=== PATIENT | female | born 1965 | race Caucasian/White ===

== ENCOUNTER 2017-06-18 09:38 | Emergency (ER) | payer SELFPAY ==
[~2017-06-18] VITALS: Ht 165.1 cm; Wt 86.8 kg
[2017-06-18 09:48] VITALS: BP 158/82; PULSE 71; RESP 18; TEMP 98.5; O2SAT 98
[2017-06-18 09:53] VITALS: BP 158/82; PULSE 71; RESP 16; TEMP 98.5; O2SAT 98
[2017-06-18] MEDS ORDERED: ONDANSETRON HCL 4 MG/2 ML VIAL IVP ONE (10:15)
[2017-06-18] MEDS ORDERED: MORPHINE SULFATE 4 MG/ML INJ IV PUSH ONE (10:15)
--- NOTE | 2017-06-18 10:16 | PD ---
HPI Chief Complaint: Musculoskeletal Complaint Time Seen by Provider: 10:01 Travel History International Travel<30 days: No Contact w/Intl Traveler<30days: No Traveled to known affect area: No History of Present Illness HPI This patient complains of a pain. It's located in her left upper back. Started during the night. Pain is severe. No alleviating factors. Duration 8 hours. There is no injury. She denies neurologic complaints such as sensory loss muscle weakness or paresthesia. Pain is located just to the left of midline in the upper back but deep. Not reproducible with any movement. PFSH Past Medical History GERD: Yes Influenza Vaccination: No ?: Not Past Surgical History Surgical History: No Previous Surgery Social History Alcohol Use: No Tobacco Use: No Substance Use: No Allergies-Medications (Allergen,Severity, Reaction): Coded Allergies: No Known Allergies (Unverified , 06/18/17) Review of Systems General / Constitutional: No: Fever Eyes: No: Visual changes HENT: No: Headaches Cardiovascular: No: Chest Pain or Discomfort Respiratory: No: Shortness of Breath Gastrointestinal: No: Abdominal Pain Genitourinary: No: Dysuria Musculoskeletal: Positive: Pain Skin: No Rash Neurologic: No: Weakness Psychiatric: No: Depression Endocrine: No: Polydipsia Hematologic/Lymphatic: No: Easy Bruising Physical Exam Narrative GENERAL: Well-nourished, well-developed patient with left upper back pain. SKIN: Focused skin assessment reveals no rash and nodules. Skin is Warm and dry. HEAD: Atraumatic. Normocephalic. EYES: Pupils equal and round. No scleral icterus. No injection or drainage. ENT: No nasal bleeding or discharge. Mucous membranes pink and moist. NECK: Trachea midline. No JVD. CARDIOVASCULAR: Regular rate and rhythm. No murmur appreciated. RESPIRATORY: No accessory muscle use. Clear to auscultation. Breath sounds equal bilaterally. GASTROINTESTINAL: Abdomen soft, non-tender, nondistended. Hepatic and splenic margins not palpable. MUSCULOSKELETAL: No obvious deformities. No clubbing. No cyanosis. No edema. NEUROLOGICAL: Awake and alert. No obvious cranial nerve deficits. Motor grossly within normal limits. Normal speech. PSYCHIATRIC: Appropriate mood and affect; insight and judgment normal. Data Data Last Documented VS Vital Signs Date Time Temp Pulse Resp B/P Pulse Ox O2 Delivery O2 Flow Rate FiO2 06/18/17 10:58 68 16 119/64 98 06/18/17 09:53 98.5 Orders Iv Access Insert/Monitor (06/18/17 10:11) Ondansetron Inj (Zofran Inj) (06/18/17 10:15) Morphine Inj (Morphine Inj) (06/18/17 10:15) Complete Blood Count With Diff (06/18/17 10:11) Basic Metabolic Panel (Bmp) (06/18/17 10:11) Chest, Single Ap (06/18/17 ) Ketorolac Inj (Toradol Inj) (06/18/17 10:30) Hydromorphone Pf Inj (Dilaudid Pf Inj) (06/18/17 11:15) Ct Thorax/ Chest W Iv Contrast (06/18/17 ) Iohexol 350 Inj (Omnipaque 350 Inj) (06/18/17 11:38) Labs Laboratory Tests Test 06/18/17 10:20 White Blood Count 8.4 TH/MM3 Red Blood Count 3.99 MIL/MM3 Hemoglobin 12.5 GM/DL Hematocrit 36.6 % Mean Corpuscular Volume 91.6 FL Mean Corpuscular Hemoglobin 31.2 PG Mean Corpuscular Hemoglobin 34.1 % Concent Red Cell Distribution Width 12.3 % Platelet Count 368 TH/MM3 Mean Platelet Volume 6.9 FL Neutrophils (%) (Auto) 57.7 % Lymphocytes (%) (Auto) 30.7 % Monocytes (%) (Auto) 7.4 % Eosinophils (%) (Auto) 3.5 % Basophils (%) (Auto) 0.7 % Neutrophils # (Auto) 4.8 TH/MM3 Lymphocytes # (Auto) 2.6 TH/MM3 Monocytes # (Auto) 0.6 TH/MM3 Eosinophils # (Auto) 0.3 TH/MM3 Basophils # (Auto) 0.1 TH/MM3 CBC Comment DIFF FINAL Differential Comment Sodium Level 137 MEQ/L Potassium Level 3.7 MEQ/L Chloride Level 103 MEQ/L Carbon Dioxide Level 26.4 MEQ/L Anion Gap 8 MEQ/L Blood Urea Nitrogen 12 MG/DL Creatinine 0.98 MG/DL Estimat Glomerular Filtration 60 ML/MIN Rate Random Glucose 107 MG/DL Calcium Level 9.1 MG/DL MDM Medical Decision Making Medical Screen Exam Complete: Yes Emergency Medical Condition: Yes Medical Record Reviewed: Yes Differential Diagnosis Musculoskeletal pain, thoracic aortic aneurysm, thoracic or cervical disc herniation Narrative Course I have reviewed the patient's electronic medical record. IV placed CBC is normal Metabolic profile is normal I gave her injection of morphine and Zofran and Toradol for symptom relief I reviewed her chest x-ray which is normal I gave her a milligram of Dilaudid IV CT of the chest with IV contrast was done to rule out dangerous finding such as aneurysm. No evidence of aneurysm or dissection noted. She has incidental finding of steatosis of the liver. Her vitals are good and she does feel much better after pain medication Patient is to follow-up with primary care physician and discuss her situation. There are no neurologic deficits to suggest emergent MRI is indicated at this time especially after only a few hours of pain. If she has neurologic deficit or worsening she is advised to return. Etiology of her pain is not clear at all at this point. She will need further workup and follow-up. 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 I have prescribed some Percocet and warned them about the side effects Diagnosis Primary Impression: Back pain Qualified Code: M54.6 - Acute left-sided thoracic back pain Additional Instructions: The patient was warned about potential sedation for the medications they will receive on prescription. The patient was advised to follow up with their physician and return if they worsen. Med/Other Pt SpecificInfo: Prescription(s) given Scripts Oxycodone-Acetaminophen (Percocet)5-325 mg Tab1 Tab PO Q6H PRN (PAIN) #25 TAB Ref 0 Prov:Stanton Nesbitt MD 06/18/17 Disposition: 01 DISCHARGE HOME Condition: Stable Stanton Nesbitt MD Jun 18, 2017 10:16
[2017-06-18 10:29] LABS: AUTOMATED NEUTROPHIL # 4.8 TH/MM3 (1.8-7.7); BASOPHIL # 0.1 TH/MM3 (0-0.2); BASOPHIL % 0.7 % (0.0-2.0); EOSINOPHIL # 0.3 TH/MM3 (0-0.4); EOSINOPHIL % 3.5 % (0.0-4.0); HEMATOCRIT 36.6 % (35.0-46.0); HEMO FLAGS DIFF FINAL; LYMPH % 30.7 % (9.0-44.0); LYMPHOCYTE # 2.6 TH/MM3 (1.0-4.8); MEAN CELL VOLUME 91.6 FL (80.0-100.0); MEAN CORPUSCULAR HEMOGLOBIN 31.2 PG (27.0-34.0); MEAN CORPUSCULAR HGB CONC 34.1 % (32.0-36.0); MONO % 7.4 % (0.0-8.0); NEUT % 57.7 % (16.0-70.0); PLATELET COUNT 368 TH/MM3 (150-450); RED BLOOD COUNT 3.99 MIL/MM3 (4.00-5.30); RED CELL DISTRIBUTION WIDTH 12.3 % (11.6-17.2); WHITE BLOOD COUNT 8.4 TH/MM3 (4.0-11.0)
[2017-06-18] MEDS ORDERED: KETOROLAC TROMETHAMINE 30 MG/ML (IVP) VIAL IV PUSH ONE (10:30)
[2017-06-18 10:35] VITALS: BP 129/71; PULSE 71; RESP 16; O2SAT 98
[2017-06-18 10:38] LABS: POTASSIUM 3.7 MEQ/L (3.5-5.1)
[2017-06-18 10:42] LABS: BICARBONATE 26.4 MEQ/L (21.0-32.0)
--- NOTE | 2017-06-18 10:46 | RADRPT ---
EXAM DATE/TIME: 06/18/2017 10:23 [facility] COMPARISON: No previous studies available for comparison. INDICATIONS : Left side chest and shoulder pain MEDICAL HISTORY : None. SURGICAL HISTORY : None. ENCOUNTER: Initial ACUITY: 2 days PAIN SCORE: 10/10 LOCATION: Left chest FINDINGS: A single view of the chest demonstrates the lungs to be symmetrically aerated without evidence of mas s, infiltrate or effusion. The cardiomediastinal contours are unremarkable. Osseous structures are intact. CONCLUSION: No acute disease. Rick Wallis MD FACR on June 18, 2017 at 10:45 Board Certified Radiologist. This report was verified electronically.
[2017-06-18 10:58] VITALS: BP 119/64; PULSE 68; RESP 16; O2SAT 98
[2017-06-18] MEDS ORDERED: HYDROmorphone HCL PF 1 MG/ML VIAL IVS ONE (11:15)
[2017-06-18] MEDS ORDERED: IOHEXOL 350 MG/ML 10 ML VIAL (for RAD DIAG) IV ONE (11:38)
--- NOTE | 2017-06-18 11:46 | RADRPT ---
EXAM DATE/TIME: 06/18/2017 11:21 [facility] COMPARISON: No previous studies available for comparison. INDICATIONS : Left upper back pain. Evaluate for aneurysm. IV CONTRAST: 65 cc Omnipaque 350 (iohexol) IV RADIATION DOSE: 14.62 CTDIvol (mGy) MEDICAL HISTORY : Gastroesophageal reflux disease. SURGICAL HISTORY : None. ENCOUNTER: Initial ACUITY: 1 day PAIN SCALE: 8/10 LOCATION: Left upper back TECHNIQUE: Volumetric scanning of the chest was performed. Using automated exposure control and adjustment of t he mA and/or kV according to patient size, radiation dose was kept as low as reasonably achievable to obtain optimal diagnostic quality images. DICOM format image data is available electronically for review and comparison. Follow-up recommendations for incidentally detected pulmonary nodules are based at a minimum on nodul e size and patient risk factors according to Fleischner Society Guidelines. FINDINGS: LUNGS: There is no consolidation or pneumothorax. No concerning pulmonary nodule is visualized. PLEURA: There is no pleural thickening or pleural effusion. MEDIASTINUM: The heart and great vessels demonstrate no acute abnormality. There is no mediastinal or hilar lymph adenopathy. Thoracic aorta is normal in caliber without evidence for aneurysm or gross dissection. Th ere is 3 vessel arch anatomy. Proximal arch vessels are patent. The very central pulmonary arteries a re patent. AXILLAE: Within normal limits. No lymphadenopathy. SKELETAL: Within normal limits for patient age. MISCELLANEOUS: Villous portions of the upper abdomen demonstrate moderate to severe hepatic steatosis. CONCLUSION: 1. Unremarkable CT examination of the thorax. Specifically, no evidence for significant thoracic aort ic aneurysm or gross dissection. 2. Moderate to severe hepatic steatosis. Rinku Aldridge MD on June 18, 2017 at 11:40 Board Certified Radiologist. This report was verified electronically.
[2017-06-18] MEDS ORDERED: PERC5TAB12 PO (12:01)
[2017-06-18 12:14] VITALS: BP 107/69
== END 2017-06-18 12:21 | disposition home or self-care (01) ==
LOC: PHED 09:38
DX: M54.6 Pain in thoracic spine (principal); Z87.19 Personal history of other diseases of the digestive system
CPT/HCPCS: 71010; 71260; 80048; 85025; 96374; 96375; 99285; J1170; J1885; J2270; J2405; Q9967

== ENCOUNTER 2017-11-06 10:32 | Observation (INO) | payer MEDICAID ==
[~2017-11-06] VITALS: Ht 165.1 cm; Wt 81.8 kg
[~2017-11-06 10:32] MED LIST: PERC5TAB12 PO
[2017-11-06 10:37] VITALS: BP 190/91; PULSE 65; RESP 20; TEMP 97.3; O2SAT 100
[2017-11-06 10:51] LABS: BILIRUBIN, URINE NEG (NEG); GLUCOSE,URINE NEG (NEG); KETONE, URINE TRACE mg/dL (NEG); NITRITE,URINE NEG (NEG); URINE LEUKOCYTE ESTERASE NEG (NEG)
[2017-11-06] MEDS ORDERED: PROT40TA PO (10:54)
[2017-11-06 10:57] LABS: BLOOD, URINE TRACE (NEG); RBC, URINE 0-3 /hpf (0-3); SQUAMOUS EPITHELIAL CELL URINE > 8 /hpf (0-5); URINE COLOR YELLOW (YELLW/STRAW)
[2017-11-06] MEDS ORDERED: SODIUM CHLOR 0.9% 1000 ML INJ 1,000 ML IV SCH (10:57)
[2017-11-06] MEDS ORDERED: ONDANSETRON HCL 4 MG/2 ML VIAL IVP ONE (11:00)
[2017-11-06] MEDS ORDERED: HYDROmorphone HCL PF 2 MG/ML VIAL IVS ONE (11:00)
[2017-11-06] MEDS ORDERED: SODIUM CHLORIDE 0.9% FLUSH 10 ML FLUSH IV FLUSH PRN ×2 (11:00→12:45)
[2017-11-06] MEDS ORDERED: FAMOTIDINE 20 MG/2 ML VIAL IV PUSH ONE (11:00)
--- NOTE | 2017-11-06 11:02 | PD ---
HPI Chief Complaint: Abdominal Pain Time Seen by Provider: 10:57 Travel History International Travel<30 days: No Contact w/Intl Traveler<30days: No Traveled to known affect area: No History of Present Illness HPI Patient presents with complaints of right upper quadrant pain since yesterday. Reports a history of gallstones with recent GI workup. Right upper quadrant ultrasound confirmed gallstones approximately one month ago. Endoscopy and colonoscopy performed one week ago. Patient has had plans to meet with GI to assess plan for probable cholecystectomy. Acute onset of right upper quadrant pain yesterday after eating ice cream. Mild nausea. No vomiting. Denies chest pain shortness of breath urinary or bowel symptoms. PFSH Past Medical History Diminished Hearing: No GERD: Yes Tetanus Vaccination: Unknown ?: Not LMP: MENOPAUSAL Social History Alcohol Use: No Tobacco Use: No Substance Use: No Allergies-Medications (Allergen,Severity, Reaction): Coded Allergies: No Known Allergies (Unverified Adverse Reaction, Unknown, 11/06/17) Reported Meds & Prescriptions Reported Meds & Active Scripts Active Reported Protonix (Pantoprazole Sodium) 40 Mg Tab 40 Mg PO DAILY Review of Systems General / Constitutional: No: Fever Eyes: No: Visual changes HENT: No: Headaches Cardiovascular: No: Chest Pain or Discomfort Respiratory: No: Shortness of Breath Gastrointestinal: Positive: Nausea, Abdominal Pain Genitourinary: No: Dysuria Musculoskeletal: No: Pain Skin: No Rash Neurologic: No: Weakness Psychiatric: No: Depression Endocrine: No: Polydipsia Hematologic/Lymphatic: No: Easy Bruising Physical Exam Narrative GENERAL: Well-nourished, well-developed patient. SKIN: Focused skin assessment warm/dry. HEAD: Normocephalic. EYES: No scleral icterus. No injection or drainage. NECK: Supple, trachea midline. No JVD or lymphadenopathy. CARDIOVASCULAR: Regular rate and rhythm without murmurs, gallops, or rubs. RESPIRATORY: Breath sounds equal bilaterally. No accessory muscle use. GASTROINTESTINAL: Abdomen soft, tender in the right upper quadrant, nondistended. MUSCULOSKELETAL: No cyanosis, or edema. BACK: Nontender without obvious deformity. No CVA tenderness. Data Data Last Documented VS Vital Signs Date Time Temp Pulse Resp B/P (MAP) Pulse Ox O2 Delivery O2 Flow Rate FiO2 11/06/17 11:23 16 98 Room Air 11/06/17 10:37 97.3 65 190/91 (124) Orders Orders Urinalysis - C+S If Indicated (11/06/17 10:36) Ed Urine Pregnancytest Poc (11/06/17 10:53) Complete Blood Count With Diff (11/06/17 10:57) Comprehensive Metabolic Panel (11/06/17 10:57) Lipase (11/06/17 10:57) Lactic Acid (11/06/17 10:57) Us Abdomen Gallbladder (11/06/17 ) Iv Access Insert/Monitor (11/06/17 10:57) Ecg Monitoring (11/06/17 10:57) Oximetry (11/06/17 10:57) NPO (11/06/17 10:57) Hydromorphone Pf Inj (Dilaudid Pf Inj) (11/06/17 11:00) Ondansetron Inj (Zofran Inj) (11/06/17 11:00) Sodium Chlor 0.9% 1000 Ml Inj (Ns 1000 M (11/06/17 10:57) Sodium Chloride 0.9% Flush (Ns Flush) (11/06/17 11:00) Famotidine Inj (Pepcid Inj) (11/06/17 11:00) Ct Abd/Pel W Iv Contrast(Rout) (11/06/17 ) Ciprofloxacin 400 Mg Premix (Cipro 400 M (11/06/17 12:30) Metronidazole 500 Mg Inj (Flagyl 500 Mg (11/06/17 12:30) Ondansetron Inj (Zofran Inj) (11/06/17 12:30) Prothrombin Time / Inr (Pt) (11/06/17 12:31) Hydromorphone Pf Inj (Dilaudid Pf Inj) (11/06/17 12:45) Place In Observation (11/06/17 ) Vital Signs (Adult) Q4H (11/06/17 12:33) Activity Oob With Assistance (11/06/17 12:33) Diet Npo (11/06/17 Lunch) Sodium Chlor 0.9% 1000 Ml Inj (Ns 1000 M (11/06/17 12:33) Sodium Chloride 0.9% Flush (Ns Flush) (11/06/17 12:45) Sodium Chloride 0.9% Flush (Ns Flush) (11/06/17 21:00) Acetaminophen (Tylenol) (11/06/17 12:45) Ondansetron Inj (Zofran Inj) (11/06/17 12:45) Basic Metabolic Panel (Bmp) (11/07/17 06:00) Complete Blood Count With Diff (11/07/17 06:00) Scd Bilateral/Knee High TASHA.BID (11/06/17 12:33) Naloxone Inj (Narcan Inj) (11/06/17 12:45) Magnesium Hydroxide Liq (Milk Of Magnesi (11/06/17 12:45) Sennosides (Senokot) (11/06/17 12:45) Bisacodyl Supp (Dulcolax Supp) (11/06/17 12:45) Lactulose Liq (Lactulose Liq) (11/06/17 12:45) Ceftriaxone Inj (Rocephin Inj) (11/07/17 08:00) Morphine Inj (Morphine Inj) (11/06/17 12:45) Acetamin-Hydrocod 325-5 Mg ([place] 5-325 (11/06/17 12:45) Clonidine (Catapres) (11/06/17 12:45) Pantoprazole (Protonix) (11/07/17 09:00) Admit Order (Ed Use Only) (11/06/17 ) Vital Signs (Adult) Q4H (11/06/17 12:37) Activity Oob With Assistance (11/06/17 12:37) Notify Dr: Other (11/06/17 12:37) Consult General Surgery (11/06/17 ) Labs Laboratory Tests Test 11/06/17 10:45 11/06/17 11:00 Urine Collection Type CLEAN CATCH Urine Color YELLOW Urine Turbidity CLEAR Urine pH 7.0 Urine Specific [place] 1.021 Urine Protein NEG mg/dL Urine Glucose (UA) NEG mg/dL Urine Ketones TRACE mg/dL Urine Occult Blood TRACE Urine Nitrite NEG Urine Bilirubin NEG Urine Leukocyte Esterase NEG Urine RBC 0-3 /hpf Urine Squamous Epithelial Cells > 8 /hpf Microscopic Urinalysis Comment CULT NOT INDICATED Urine Collection Time 10:45 White Blood Count 14.6 TH/MM3 Red Blood Count 4.57 MIL/MM3 Hemoglobin 13.9 GM/DL Hematocrit 42.9 % Mean Corpuscular Volume 94.0 FL Mean Corpuscular Hemoglobin 30.5 PG Mean Corpuscular Hemoglobin Concent 32.5 % Red Cell Distribution Width 13.0 % Platelet Count 417 TH/MM3 Mean Platelet Volume 7.6 FL Neutrophils (%) (Auto) 78.3 % Lymphocytes (%) (Auto) 15.9 % Monocytes (%) (Auto) 4.9 % Eosinophils (%) (Auto) 0.6 % Basophils (%) (Auto) 0.3 % Neutrophils # (Auto) 11.5 TH/MM3 Lymphocytes # (Auto) 2.3 TH/MM3 Monocytes # (Auto) 0.7 TH/MM3 Eosinophils # (Auto) 0.1 TH/MM3 Basophils # (Auto) 0.0 TH/MM3 CBC Comment DIFF FINAL Differential Comment Blood Urea Nitrogen 10 MG/DL Creatinine 0.92 MG/DL Random Glucose 110 MG/DL Total Protein 9.0 GM/DL Albumin 4.1 GM/DL Calcium Level 9.0 MG/DL Alkaline Phosphatase 84 U/L Aspartate Amino Transf (AST/SGOT) 25 U/L Alanine Aminotransferase (ALT/SGPT) 30 U/L Total Bilirubin 0.7 MG/DL Sodium Level 133 MEQ/L Potassium Level 4.0 MEQ/L Chloride Level 96 MEQ/L Carbon Dioxide Level 26.3 MEQ/L Anion Gap 11 MEQ/L Estimat Glomerular Filtration Rate 64 ML/MIN Lactic Acid Level 3.1 mmol/L Lipase 120 U/L [facility] Medical Decision Making Medical Screen Exam Complete: Yes Emergency Medical Condition: Yes Differential Diagnosis Cholelithiasis, cholecystitis, biliary colic Narrative Course Assessment and plan discussed with patient and at bedside. Patient received IV Dilaudid with improvement of her pain control. Made nothing by mouth. test negative. Patient given IV antibiotics and fluid resuscitation. Last 72 hours Impressions Gall Bladder Ultrasound 11/06/17 0000 Signed Impressions: Service Date/Time: Monday, November 06, 2017 11:28 - CONCLUSION: Multiple gallstones with probable acute cholecystitis. Tenderness over the gallbladder. Rick Wallis MD FACR Physician Communication Physician Communication Spoke with Dr. Melara who is in agreement will admit. Spoke with Dr. Rahman who requested transfer to the main for possible cholecystectomy Diagnosis Primary Impression: Cholecystitis Additional Impressions: Leukocytosis Qualified Codes: D72.829 - Elevated white blood cell count, unspecified Elevated lactic acid level Gary Abdullahi MD Nov 06, 2017 11:02
[2017-11-06 11:21] LABS: AUTOMATED NEUTROPHIL # 11.5 TH/MM3 (1.8-7.7); BASOPHIL % 0.3 % (0.0-2.0); EOSINOPHIL # 0.1 TH/MM3 (0-0.4); EOSINOPHIL % 0.6 % (0.0-4.0); HEMATOCRIT 42.9 % (35.0-46.0); HEMOGLOBIN 13.9 GM/DL (11.6-15.3); LYMPH % 15.9 % (9.0-44.0); LYMPHOCYTE # 2.3 TH/MM3 (1.0-4.8); MEAN CORPUSCULAR HEMOGLOBIN 30.5 PG (27.0-34.0); MEAN CORPUSCULAR HGB CONC 32.5 % (32.0-36.0); MEAN PLATELET VOLUME 7.6 FL (7.0-11.0); MONO % 4.9 % (0.0-8.0); MONOCYTE # 0.7 TH/MM3 (0-0.9); NEUT % 78.3 % (16.0-70.0); PLATELET COUNT 417 TH/MM3 (150-450); RED BLOOD COUNT 4.57 MIL/MM3 (4.00-5.30); WHITE BLOOD COUNT 14.6 TH/MM3 (4.0-11.0)
[2017-11-06 11:22] LABS: CHLORIDE 96 MEQ/L (98-107); SODIUM (NA) 133 MEQ/L (136-145)
[2017-11-06 11:23] VITALS: RESP 16; O2SAT 98
[2017-11-06 11:26] LABS: ALBUMIN 4.1 GM/DL (3.4-5.0); BICARBONATE 26.3 MEQ/L (21.0-32.0); BLOOD UREA NITROGEN 10 MG/DL (7-18); GLUCOSE,RANDOM 110 MG/DL (74-106); LIPASE 120 U/L (73-393)
[2017-11-06 11:29] LABS: ALT (GPT) 30 U/L (10-53); AST (GOT) 25 U/L (15-37); CREATININE 0.92 MG/DL (0.50-1.00); GLOMERULAR FILTRATION RATE 64 ML/MIN (>89)
[2017-11-06 11:30] LABS: TOTAL BILIRUBIN ADULT 0.7 MG/DL (0.2-1.0)
[2017-11-06 11:32] LABS: ALKALINE PHOSPHATASE 84 U/L (45-117)
--- NOTE | 2017-11-06 11:54 | RADRPT ---
EXAM DATE/TIME: 11/06/2017 11:28 [facility] COMPARISON: No previous studies available for comparison. INDICATIONS : Right upper quadrant pain. MEDICAL HISTORY : Right upper quadrant pain. Gallstones. SURGICAL HISTORY : None. ENCOUNTER: Initial ACUITY: 1 month PAIN SCORE: 6/10 LOCATION: Right upper quadrant MEASUREMENTS: LIVER: 17.2 cm length COMMON DUCT: 10 mm RIGHT KIDNEY: 12.3 x 4.7 x 5.9 cm FINDINGS: LIVER: Echogenic liver without ductal dilatation. COMMON DUCT: Enlarged at 10 mm GALLBLADDER: Multiple stones the gallbladder wall thickening and questionable pericholecystic fluid. Tenderness t o palpation of the gallbladder. PANCREAS: The visualized portions are within normal limits. RIGHT KIDNEY: No evidence of hydronephrosis, stone, or mass. CONCLUSION: Multiple gallstones with probable acute cholecystitis. Tenderness over the gallbladder. Rick Wallis MD FACR on November 06, 2017 at 11:50 Board Certified Radiologist. This report was verified electronically.
[2017-11-06] MEDS ORDERED: ONDANSETRON HCL 4 MG/2 ML VIAL IV PUSH ONE (12:30)
[2017-11-06] MEDS ORDERED: CIPROFLOXACIN 400 MG PREMIX 200 ML IV ONE (12:30)
[2017-11-06] MEDS ORDERED: metroNIDAZOLE 500 MG INJ 100 ML IV ONE (12:30)
[2017-11-06] MEDS ORDERED: LACTULOSE SYRUP 20 GM/30 ML CUP PO PRN (12:45)
[2017-11-06] MEDS ORDERED: NALOXONE HCL 0.4 MG/ML AMP IV PUSH PRN (12:45)
[2017-11-06] MEDS ORDERED: HYDROmorphone HCL PF 2 MG/ML VIAL IV PUSH ONE (12:45)
[2017-11-06] MEDS ORDERED: BISACODYL 10 MG SUPP RECTAL PRN (12:45)
[2017-11-06 12:59] LABS: PROTHROMBIN TIME - PATIENT 10.3 SEC (9.8-11.6)
[2017-11-06 13:00] VITALS: BP 118/54; PULSE 69; RESP 16; O2SAT 94
[2017-11-06] MEDS ORDERED: MAGNESIUM HYDROXIDE SUSP 30 ML CUP PO PRN (13:00)
[2017-11-06] MEDS ORDERED: SENNOSIDES 8.6 MG TAB PO PRN (13:00)
[2017-11-06] MEDS ORDERED: IOHEXOL 350 MG/ML 10 ML VIAL (for RAD DIAG) IVCONTRAST ONE (13:02)
--- NOTE | 2017-11-06 13:13 | RADRPT ---
EXAM DATE/TIME: 11/06/2017 12:44 [facility] COMPARISON: No previous studies available for comparison. INDICATIONS : Abdominal pain. IV CONTRAST: 96 cc Omnipaque 350 (iohexol) IV ORAL CONTRAST: No oral contrast ingested. RADIATION DOSE: 11.15 CTDIvol (mGy) MEDICAL HISTORY : Gastroesophageal reflux disease. GB issues. SURGICAL HISTORY : None. ENCOUNTER: Initial ACUITY: 2 days PAIN SCALE: 9/10 LOCATION: Right upper quadrant radiates to back. TECHNIQUE: Volumetric scanning of the abdomen and pelvis was performed. Using automated exposure control and ad justment of the mA and/or kV according to patient size, radiation dose was kept as low as reasonably achievable to obtain optimal diagnostic quality images. DICOM format image data is available electro nically for review and comparison. FINDINGS: Lung base is clear There is no pericardial effusion Mild fatty replacement in the liver Minimal fluid around the gallbladder with some gallbladder wall thickening. Ultrasound showed gallst ones Pancreas and spleen unremarkable Adrenal glands appear normal There is symmetrical renal function There is no inflammatory changes around the mesentery In the pelvis diverticula are noted without diverticulitis Mild prominence of the uterus. CONCLUSION: Probable acute cholecystitis. Moderate fatty replacement the liver. Rick Wallis MD FACR on November 06, 2017 at 13:09 Board Certified Radiologist. This report was verified electronically.
[2017-11-06] MEDS ORDERED: BUPIVACAINE/EPINEPHRINE 0.25% PF 30 ML VIAL ONE (13:39)
[2017-11-06] MEDS ORDERED: ROCURONIUM INJ 50 MG/5 ML VIAL ONE (13:41)
--- NOTE | 2017-11-06 13:56 | HHI.HP ---
[facility]Staff Admission Diagnosis Cholecystitis Diagnoses: Chief Complaint: Right upper quadrant pain, nausea, vomiting. Travel History International Travel<30 Days: No Contact w/Intl Traveler <30 Da: No Traveled to Known Affected Are: No History of Present Illness Ms. Morin is a 52-year-old female with a history of GERD who presents to the emergency department due to abdominal pain, nausea and vomiting since yesterday after eating ice cream and other foods. For about 2 months patient has been dealing with significant acid reflux problems. She underwent EGD and colonoscopy 8 days ago. Patient denies any chest pain, shortness of breath, fever or chills. Denies any diarrhea or constipation. In the ED gallbladder ultrasound indicated acute cholecystitis which was also confirmed on abdominal CT scan. Surgery was consulted by emergency department. Surgery recommended cholecystectomy today. Patient received ciprofloxacin and Flagyl in the ED. Review of Systems Except as stated in HPI: all other systems reviewed are Neg Past Family Social History Past Medical History GERD Past Surgical History No significant past surgical history Reported Medications Protonix 40 mg daily. Allergies: Coded Allergies: No Known Allergies (Unverified Adverse Reaction, Unknown, 11/06/17) Family History No family history of heart disease, Alzheimer's or Parkinson's, cancer. Social History Patient denies using tobacco or illicit drugs. She drinks socially. Physical Exam Vital Signs Vital Signs Date Time Temp Pulse Resp B/P (MAP) Pulse Ox O2 Delivery O2 Flow Rate FiO2 11/06/17 13:00 69 16 118/54 (75) 94 Room Air 11/06/17 11:23 16 98 Room Air 11/06/17 10:37 97.3 65 20 190/91 (124) 100 Physical Exam GENERAL: This is a well-nourished, well-developed patient, in no apparent distress. SKIN: No rashes, ecchymoses or lesions. Warm and dry. HEAD: Atraumatic. Normocephalic. No temporal or scalp tenderness. EYES: Pupils equal round and reactive. No injection or drainage. ENT: Nose without bleeding, purulent drainage or septal hematoma. Airway patent. NECK: Trachea midline. No lymphadenopathy. Supple, nontender, no meningeal signs. CARDIOVASCULAR: Regular rate and rhythm without murmurs, gallops, or rubs. No JVD. RESPIRATORY: Clear to auscultation. Breath sounds equal bilaterally. No wheezes , rales, or rhonchi. GASTROINTESTINAL: Abdomen soft, epigastric area tender to palpation, nondistended. No guarding. MUSCULOSKELETAL: Extremities without clubbing, cyanosis, or edema. NEUROLOGICAL: Awake and alert. Cranial nerves II through XII intact. No focal neurological deficits. Normal speech. Laboratory Laboratory Tests Test 11/06/17 10:45 11/06/17 11:00 Urine Collection Type CLEAN CATCH Urine Color YELLOW Urine Turbidity CLEAR Urine pH 7.0 Urine Specific [place] 1.021 Urine Protein NEG Urine Glucose (UA) NEG Urine Ketones TRACE Urine Occult Blood TRACE Urine Nitrite NEG Urine Bilirubin NEG Urine Leukocyte Esterase NEG Urine RBC 0-3 Urine Squamous Epithelial Cells > 8 Microscopic Urinalysis Comment CULT NOT INDICATED Urine Collection Time 10:45 White Blood Count 14.6 Red Blood Count 4.57 Hemoglobin 13.9 Hematocrit 42.9 Mean Corpuscular Volume 94.0 Mean Corpuscular Hemoglobin 30.5 Mean Corpuscular Hemoglobin Concent 32.5 Red Cell Distribution Width 13.0 Platelet Count 417 Mean Platelet Volume 7.6 Neutrophils (%) (Auto) 78.3 Lymphocytes (%) (Auto) 15.9 Monocytes (%) (Auto) 4.9 Eosinophils (%) (Auto) 0.6 Basophils (%) (Auto) 0.3 Neutrophils # (Auto) 11.5 Lymphocytes # (Auto) 2.3 Monocytes # (Auto) 0.7 Eosinophils # (Auto) 0.1 Basophils # (Auto) 0.0 CBC Comment DIFF FINAL Differential Comment Prothrombin Time 10.3 Prothromb Time International Ratio 1.0 Blood Urea Nitrogen 10 Creatinine 0.92 Random Glucose 110 Total Protein 9.0 Albumin 4.1 Calcium Level 9.0 Alkaline Phosphatase 84 Aspartate Amino Transf (AST/SGOT) 25 Alanine Aminotransferase (ALT/SGPT) 30 Total Bilirubin 0.7 Sodium Level 133 Potassium Level 4.0 Chloride Level 96 Carbon Dioxide Level 26.3 Anion Gap 11 Estimat Glomerular Filtration Rate 64 Lactic Acid Level 3.1 Lipase 120 Result Diagram: 11/06/17 1100 11/06/17 1100 Imaging Last Impressions Gall Bladder Ultrasound 11/06/17 0000 Signed Impressions: Service Date/Time: Monday, November 06, 2017 11:28 - CONCLUSION: Multiple gallstones with probable acute cholecystitis. Tenderness over the gallbladder. Rick Wallis MD FACR Abdomen/Pelvis CT 11/06/17 0000 Signed Impressions: Service Date/Time: Monday, November 06, 2017 12:44 - CONCLUSION: Probable acute cholecystitis. Moderate fatty replacement the liver. Rick Wallis MD FACR Caprini VTE Risk Assessment Caprini VTE Risk Assessment: No/Low Risk (score <= 1) Caprini Risk Assessment Model Point Value = 1 Point Value = 2 Point Value = 3 Point Value = 5 Age 41-60 Minor surgery BMI > 25 kg/m2 Swollen legs Varicose veins or History of unexplained or recurrent spontaneous Oral contraceptives or hormone replacement Sepsis (< 1 month) Serious lung disease, including pneumonia (< 1 month) Abnormal pulmonary function Acute myocardial infarction Congestive heart failure (< 1 month) History of inflammatory bowel disease Medical patient at bed rest Age 61-74 Arthroscopic surgery Major open surgery (> 45 min) Laparoscopic surgery (> 45 min) Malignancy Confined to bed (> 72 hours) Immobilizing plaster cast Central venous access Age >= 75 History of VTE Family history of VTE Factor V Leiden Prothrombin [id number] Lupus anticoagulant Anticardiolipin antibodies Elevated serum homocysteine Heparin-induced thrombocytopenia Other congenital or acquired thrombophilia Stroke (< 1 month) Elective arthroplasty Hip, pelvis, or leg fracture Acute spinal cord injury (< 1 month) Prophylaxis Regimen Total Risk Factor Score Risk Level Prophylaxis Regimen 0-1 Low Early ambulation 2 Moderate Order ONE of the following: *Sequential Compression Device (SCD) *Heparin 5000 units SQ BID 3-4 Higher Order ONE of the following medications: *Heparin 5000 units SQ TID *Enoxaparin/Lovenox 40 mg SQ daily (WT < 150 kg, CrCl > 30 mL/min) *Enoxaparin/Lovenox 30 mg SQ daily (WT < 150 kg, CrCl > 10-29 mL/min) *Enoxaparin/Lovenox 30 mg SQ BID (WT < 150 kg, CrCl > 30 mL/min) AND/OR *Sequential Compression Device (SCD) 5 or more Highest Order ONE of the following medications: *Heparin 5000 units SQ TID (Preferred with Epidurals) *Enoxaparin/Lovenox 40 mg SQ daily (WT < 150 kg, CrCl > 30 mL/min) *Enoxaparin/Lovenox 30 mg SQ daily (WT < 150 kg, CrCl > 10-29 mL/min) *Enoxaparin/Lovenox 30 mg SQ BID (WT < 150 kg, CrCl > 30 mL/min) AND *Sequential Compression Device (SCD) Assessment and Plan Problem List: (1) Acute cholecystitis ICD Code: K81.0 - Acute cholecystitis (2) GERD (gastroesophageal reflux disease) ICD Code: K21.9 - Gastro-esophageal reflux disease without esophagitis Assessment and Plan Ms. Morin is a 52-year-old female with a history of GERD who presented to the emergency department due to right upper quadrant abdominal pain, nausea and vomiting since yesterday after she ate ice cream and other foods. No fever or chills. ED workup indicated acute cholecystitis. Gen. surgery was consulted. - Acute cholecystitis - CT scan indicated acute cholecystitis. Images reviewed by me. - Patient received ciprofloxacin and Flagyl in the ED. We'll continue ceftriaxone for now. - However, the patient undergoes surgery today she does not require any postsurgical antibiotics. - Acetaminophen, [place] for pain and morphine for breakthrough pain. - GERD - continue Protonix 40 mg daily. Full code. Ambulation. Discharge plan: After surgery, if okay with general surgery patient could be discharged home later today or tomorrow morning. Radhika Melara DO Nov 06, 2017 1:56 pm
[2017-11-06] MEDS ORDERED: MORPHINE SULFATE 4 MG/ML INJ IV PUSH PRN (14:00)
[2017-11-06] MEDS ORDERED: cloNIDine HCL 0.1 MG TAB PO PRN (14:00)
[2017-11-06] MEDS ORDERED: MIDAZOLAM HCL 2 MG/2 ML VIAL ONE (14:23)
[2017-11-06] MEDS ORDERED: DEXAMETHASONE SOD PHOS 4 MG/ML VIAL ONE (14:23)
[2017-11-06] MEDS ORDERED: LACTATED RINGER'S 1000 ML INJ 1,000 ML ONE (14:24)
[2017-11-06] MEDS ORDERED: ACETAMINOPHEN 1000 MG/100 ML 100 ML IV ONE (14:42)
--- NOTE | 2017-11-06 15:34 | HHI.PR ---
Immediate Post Op Note Procedure Date: Nov 06, 2017 Pre Op Diagnosis: acute cholecystitis with cholelithiasis Post Op Diagnosis: same gallbladder hydrops Surgeon: Bartolome Rahman MD Train Dispatcher(s): see or sheet Procedure: lap zora Findings: inflammed gallbladder Complications: none Specimen(s) removed: gallbladder Estimated blood loss: 5cc Anesthesia: General Drains: None IVF Patient to: PACU Patient Condition: Good Bartolome Rahman MD Nov 06, 2017 15:34
[2017-11-06] MEDS ORDERED: ACETAMINOPHEN 325 MG TAB PO PRN (16:00)
--- NOTE | 2017-11-06 16:38 | EKG ---
Date Performed: 11/06/2017 Time Performed: 13:30:26 PTAGE: 52 years EKG: Sinus rhythm WITH OCCASIONAL SUPRAVENTRICULAR PREMATURE COMPLEXES BORDERLINE ECG NO PREVIOUS TRACING DOCTOR: Eva Mead Interpretating Date/Time 11/06/2017 16:37:42
[2017-11-06 17:54] VITALS: PULSE 62
[2017-11-06] MEDS ORDERED: ONDANSETRON HCL 4 MG/2 ML VIAL IVP PRN (18:00)
[2017-11-06] MEDS ORDERED: HYDROmorphone HCL PF 0.5 MG/0.5 ML SYRINGE ONE ×2 (19:05→19:18)
[2017-11-06] MEDS ORDERED: MEPERIDINE HCL 25 MG/ML VIAL ONE (19:27)
[2017-11-06] MEDS: SODIUM CHLOR 0.9% 1000 ML INJ 1,000 ML IV SCH ×2 (20:21→22:33)
[2017-11-06 20:53] VITALS: BP 119/77; PULSE 76; RESP 16; TEMP 96.6; O2SAT 97
[2017-11-06] MEDS: SODIUM CHLORIDE 0.9% FLUSH 10 ML FLUSH IV FLUSH SCH (21:40)
[2017-11-06] MEDS: PIPERACIL-TAZO 3.375 GM PREMIX 50 ML IV SCH (21:40)
--- NOTE | 2017-11-06 22:26 | MB ---
cc: STEPHANIE SANTIAGO MD DATE OF CONSULTATION 11/06/17 CHIEF COMPLAINT Abdominal pain. HISTORY OF PRESENT ILLNESS The patient is a 52-year-old female with history of reflux with recent GI workup. She presents with acute onset of right upper quadrant epigastric abdominal pain. She states the pain started approximately 24 hours ago and continued to get worse. She states the pain was a 10/10. She notes this pain after eating ice cream and some other fatty foods. She did have associated nausea and vomiting. She states the pain radiates from right side to the epigastric area. She has had similar episodes of pain in the past several months. Approximately eight days ago, she underwent GI workup including a colonoscopy, endoscopy, findings of gastritis. The patient is from [place] and was considering surgical intervention pending further workup. However, developed this acute onset of pain when the patient was down visiting her children for [place]. She denies fevers or chills. She had further workup including gallbladder ultrasound with sonographic Osman's sign, gallbladder wall thickening and acute cholecystitis with cholelithiasis. She also had a confirmation CT scan findings of this. Surgery was consulted. PAST MEDICAL HISTORY Reflux. PAST SURGICAL HISTORY The patient has no surgeries. FAMILY HISTORY Denies coronary artery disease or diabetes. SOCIAL HISTORY Denies smoking, ETOH or IVDA. ALLERGIES NO KNOWN DRUG ALLERGIES. MEDICATIONS See EMR. REVIEW OF SYSTEMS GENERAL: Denies fevers, chills. HEENT: Denies eye pain, ear pain. NECK: Denies swelling or pain LUNGS: Denies cough or wheeze. HEART: Denies palpitations or chest pain. ABDOMEN: Complained of nausea, vomiting and abdominal pain. : Denies dysuria, hematuria. ENDOCRINE: Denies polyuria or polydipsia. INTEGUMENTARY: Denies masses or lesions. PSYCHIATRIC: PHYSICAL EXAMINATION GENERAL: The patient in no acute distress. VITAL SIGNS: Temperature 97.3, pulse 65, respirations 20, blood pressure 118/54, saturation 94% on room air. HEENT: Pupils equal, round, reactive. No scleral icterus. NECK: Supple. Trachea midline. LUNGS: Clear to auscultation, bilateral expansion. HEART: S1, S2 regular. ABDOMEN: Soft, positive tenderness to palpation. Positive guarding to right upper quadrant. EXTREMITIES: Warm, well-perfused. NEUROLOGIC: GCS of 15, 5/5 motor all extremities. INTEGUMENTARY: No obvious masses or lesions. LABORATORY AND DIAGNOSTIC DATA WBC 14.6, hemoglobin 13.9, hematocrit 42.9, platelets 417. Sodium 133, potassium four, BUN 10, creatinine 0.9, glucose 110, bilirubin 0.7, AST 25, ALT 30, alk phos 84, albumin 4.1, lipase 120. CT reviewed by myself along with ultrasound showing acute cholecystitis, fatty liver, cholelithiasis. Ultrasound multiple gallstones within gallbladder, acute cholecystitis, sonographic Osman's sign. ASSESSMENT The patient is a 52-year-old female who presents with acute onset right upper quadrant pain consistent with acute cholecystitis and cholelithiasis. DISCUSSION Discussed with the patient in detail regarding operative intervention versus observation. I will discuss with the patient significant leukocytosis concerning for gallbladder infection and cholelithiasis. The patient would like and is agreeable to laparoscopic cholecystectomy. Discussed possible open procedure and possible drain placement. Currently, the patient needs to be n.p.o. IV pain control, IV antibiotics and we will plan for surgical intervention. MD LINA Larsen/ /9:15 PM /9:44 PM
[2017-11-06] MEDS: ACETAMINOPHEN/HYDROcodone 325 MG/5 MG TAB PO PRN (23:24)
[2017-11-07] VITALS: BP 114/59; PULSE 78; RESP 18; TEMP 98.3; O2SAT 97
[2017-11-07] MEDS: PIPERACIL-TAZO 3.375 GM PREMIX 50 ML IV SCH ×2 (03:04→08:37)
[2017-11-07] MEDS: ACETAMINOPHEN/HYDROcodone 325 MG/5 MG TAB PO PRN (06:29)
[2017-11-07] MEDS: SODIUM CHLOR 0.9% 1000 ML INJ 1,000 ML IV SCH (06:36)
[2017-11-07 06:46] LABS: CHLORIDE 103 MEQ/L (98-107); SODIUM (NA) 138 MEQ/L (136-145)
[2017-11-07 06:54] LABS: AUTOMATED NEUTROPHIL # 12.9 TH/MM3 (1.8-7.7); BASOPHIL % 0.1 % (0.0-2.0); EOSINOPHIL % 0.1 % (0.0-4.0); HEMATOCRIT 31.6 % (35.0-46.0); HEMOGLOBIN 10.2 GM/DL (11.6-15.3); LYMPH % 10.4 % (9.0-44.0); LYMPHOCYTE # 1.7 TH/MM3 (1.0-4.8); MEAN CELL VOLUME 92.6 FL (80.0-100.0); MEAN CORPUSCULAR HGB CONC 32.4 % (32.0-36.0); MEAN PLATELET VOLUME 7.4 FL (7.0-11.0); MONO % 8.2 % (0.0-8.0); MONOCYTE # 1.3 TH/MM3 (0-0.9); NEUT % 81.2 % (16.0-70.0); PLATELET COUNT 322 TH/MM3 (150-450); RED BLOOD COUNT 3.41 MIL/MM3 (4.00-5.30); RED CELL DISTRIBUTION WIDTH 12.6 % (11.6-17.2); WHITE BLOOD COUNT 15.9 TH/MM3 (4.0-11.0)
--- NOTE | 2017-11-07 06:55 | HHI.PR ---
Subjective Subjective Notes no acute issues, no nausea, c/o incisional pain Objective Vitals/I&O Vital Signs Date Time Temp Pulse Resp B/P (MAP) Pulse Ox O2 Delivery O2 Flow Rate FiO2 11/07/17 00:00 98.3 78 18 114/59 (77) 97 11/06/17 19:40 Nasal Cannula 2 Labs Laboratory Tests Test 11/06/17 10:45 11/06/17 11:00 11/07/17 06:15 Urine Collection Type CLEAN CATCH Urine Color YELLOW Urine Turbidity CLEAR Urine pH 7.0 Urine Specific [place] 1.021 Urine Protein NEG Urine Glucose (UA) NEG Urine Ketones TRACE Urine Occult Blood TRACE Urine Nitrite NEG Urine Bilirubin NEG Urine Leukocyte Esterase NEG Urine RBC 0-3 Urine Squamous Epithelial Cells > 8 Microscopic Urinalysis Comment CULT NOT INDICATED Urine Collection Time 10:45 White Blood Count 14.6 Red Blood Count 4.57 Hemoglobin 13.9 Hematocrit 42.9 Mean Corpuscular Volume 94.0 Mean Corpuscular Hemoglobin 30.5 Mean Corpuscular Hemoglobin Concent 32.5 Red Cell Distribution Width 13.0 Platelet Count 417 Mean Platelet Volume 7.6 Neutrophils (%) (Auto) 78.3 Lymphocytes (%) (Auto) 15.9 Monocytes (%) (Auto) 4.9 Eosinophils (%) (Auto) 0.6 Basophils (%) (Auto) 0.3 Neutrophils # (Auto) 11.5 Lymphocytes # (Auto) 2.3 Monocytes # (Auto) 0.7 Eosinophils # (Auto) 0.1 Basophils # (Auto) 0.0 CBC Comment DIFF FINAL Differential Comment Prothrombin Time 10.3 Prothromb Time International Ratio 1.0 Blood Urea Nitrogen 10 Creatinine 0.92 Random Glucose 110 Total Protein 9.0 Albumin 4.1 Calcium Level 9.0 Alkaline Phosphatase 84 Aspartate Amino Transf (AST/SGOT) 25 Alanine Aminotransferase (ALT/SGPT) 30 Total Bilirubin 0.7 Sodium Level 133 138 Potassium Level 4.0 4.0 Chloride Level 96 103 Carbon Dioxide Level 26.3 Anion Gap 11 Estimat Glomerular Filtration Rate 64 Lactic Acid Level 3.1 Lipase 120 Abdomen: Other (soft mild ttp right side, incision pain scant dry blood) A/P Assessment and Plan POD 1 Acute zora with hydrops doing well PLAN advance to reg diet pain control oob f/u labs possible d/c later today pending labs and pain control multiple questions answered script on chart Bartolome Rahman MD Nov 07, 2017 06:55
[2017-11-07 07:14] LABS: ALKALINE PHOSPHATASE 62 U/L (45-117); ALT (GPT) 53 U/L (10-53); AST (GOT) 48 U/L (15-37); BICARBONATE 28.6 MEQ/L (21.0-32.0); BLOOD UREA NITROGEN 8 MG/DL (7-18); CALCIUM 7.8 MG/DL (8.5-10.1); CREATININE 0.77 MG/DL (0.50-1.00); GLOMERULAR FILTRATION RATE 79 ML/MIN (>89); GLUCOSE,RANDOM 115 MG/DL (74-106); LIPASE 67 U/L (73-393); TOTAL BILIRUBIN ADULT 0.8 MG/DL (0.2-1.0)
[2017-11-07 08:00] VITALS: BP 97/50; PULSE 65; RESP 18; TEMP 97.1; O2SAT 94
[2017-11-07] MEDS ORDERED: cefTRIAXone INJ 2,000 MG in SODIUM CHLORIDE 0.9% INJ 100 ML IV SCH (08:00)
[2017-11-07] MEDS: SODIUM CHLORIDE 0.9% FLUSH 10 ML FLUSH IV FLUSH SCH (08:38)
[2017-11-07] MEDS ORDERED: PANTOPRAZOLE SOD 40 MG DELAYED RELEASE TAB PO SCH (09:00)
--- NOTE | 2017-11-07 10:22 | HHI.PR ---
Subjective Remarks Follow-up for acute cholecystitis. Patient is currently doing well. No fever or chills. She is tolerating diet well. Wants to go home. Objective Vitals Vital Signs Date Time Temp Pulse Resp B/P (MAP) Pulse Ox O2 Delivery O2 Flow Rate FiO2 11/07/17 08:00 97.1 65 18 97/50 (66) 94 11/07/17 00:00 98.3 78 18 114/59 (77) 97 11/06/17 20:53 96.6 76 16 119/77 (91) 97 11/06/17 19:40 98.4 92 16 115/73 (87) 95 Nasal Cannula 2 11/06/17 19:15 64 16 126/59 (81) 99 Nasal Cannula 2 11/06/17 19:00 98.4 70 16 116/66 (83) 94 Nasal Cannula 2 11/06/17 18:45 77 16 123/73 (90) 95 Room Air 11/06/17 18:30 65 16 111/65 (80) 99 Room Air 11/06/17 18:13 97.9 61 16 112/52 (72) 99 Nasal Cannula 2 11/06/17 17:55 97.9 66 16 153/87 (109) 100 Nasal Cannula 2 11/06/17 17:54 62 11/06/17 14:43 11/06/17 14:25 64 18 137/72 (93) 98 11/06/17 13:00 69 16 118/54 (75) 94 Room Air 11/06/17 11:23 16 98 Room Air 11/06/17 10:37 97.3 65 20 190/91 (124) 100 I/O 11/06/17 11/06/17 11/06/17 11/07/17 11/07/17 11/07/17 07:00 15:00 23:00 07:00 15:00 23:00 Intake Total 200 ml 3380 ml Output Total 200 ml 600 ml Balance 200 ml 3180 ml -600 ml Intake Oral 480 ml IV Total 200 ml 1600 ml Other 1300 ml Output Urine Total 600 ml Estimated Blood Loss 200 ml # Voids 0 3 Result Diagram: 11/07/17 0615 11/07/17 0615 Imaging Last Impressions Gall Bladder Ultrasound 11/06/17 0000 Signed Impressions: Service Date/Time: Monday, November 06, 2017 11:28 - CONCLUSION: Multiple gallstones with probable acute cholecystitis. Tenderness over the gallbladder. Rick Wallis MD FACR Abdomen/Pelvis CT 11/06/17 0000 Signed Impressions: Service Date/Time: Monday, November 06, 2017 12:44 - CONCLUSION: Probable acute cholecystitis. Moderate fatty replacement the liver. Rick Wallis MD FACR Objective Remarks GENERAL: Alert, oriented 3, NAD. SKIN: Warm and dry. HEAD: Normocephalic. EYES: No scleral icterus. No injection or drainage. NECK: Supple, trachea midline. No JVD or lymphadenopathy. CARDIOVASCULAR: Regular rate and rhythm without murmurs, gallops, or rubs. RESPIRATORY: Breath sounds equal bilaterally. No accessory muscle use. GASTROINTESTINAL: Abdomen soft, mild right upper quadrant pain on palpation, nondistended. MUSCULOSKELETAL: No cyanosis, or edema. BACK: Nontender without obvious deformity. No CVA tenderness. Procedures Laparoscopic cholecystectomy 11/06/2017 A/P Problem List: (1) Acute cholecystitis ICD Code: K81.0 - Acute cholecystitis (2) GERD (gastroesophageal reflux disease) ICD Code: K21.9 - Gastro-esophageal reflux disease without esophagitis Assessment and Plan Ms. Morin is a 52-year-old female with a history of GERD who presented to the emergency department due to right upper quadrant abdominal pain, nausea and vomiting since yesterday after she ate ice cream and other foods. No fever or chills. ED workup indicated acute cholecystitis. Gen. surgery was consulted. - Acute cholecystitis - CT scan indicated acute cholecystitis. Images reviewed by me on 2016. - Patient received ciprofloxacin and Flagyl in the ED. Received Zosyn while in the hospital. - However, the patient undergoes surgery today she does not require any postsurgical antibiotics. - Acetaminophen, [place] for pain and morphine for breakthrough pain. - GERD - continue Protonix 40 mg daily. Full code. Ambulation. Discharge patient to home Condition on discharge: Improved Regular Diet as tolerated Ad Bethanie activity Rx written: Augmentin 500mg TID for 5 days (Rx sent to Pharmacy). I tried calling patient but wrong number listed. [place] 5/325mg Q4hrs PRN #40 Zofran ODT Follow-up with primary care physician PRN, one week follow up with Dr. Rahman. Radhika Melara DO Nov 07, 2017 10:22 am
[2017-11-07] MEDS ORDERED: ZOFR4TAB3 SL (10:36)
[2017-11-07] MEDS ORDERED: NORC5TAB PO ×2 (10:36→11:45)
[2017-11-07] MEDS ORDERED: AUGM500T7 PO (12:50)
--- NOTE | 2017-11-07 21:24 | MP ---
cc: STEPHANIE RAHMAN MD DATE OF SURGERY: 11/06/2017. PREOPERATIVE DIAGNOSIS: Acute cholecystitis with cholelithiasis. POSTOPERATIVE DIAGNOSIS: Acute cholecystitis with cholelithiasis, gallbladder hydrops. OPERATIVE PROCEDURE PERFORMED: Laparoscopic cholecystectomy SURGEON: Dr. Stephanie Rahman. COUNCILLOR ABORIGINAL [place]: See OR sheet ANESTHESIA: GETA IV FLUIDS: See anesthesia sheet. ESTIMATED BLOOD LOSS: 175 cc. DRAINS: None. COMPLICATIONS: None. WOUND CLASSIFICATION: Clean / contaminated. FINDINGS: Fatty liver. Intrahepatic gallbladder. Multiple adhesions to the gallbladder with gallbladder hydrops. Multiple gallstones. COMPLICATIONS: None. SPECIMEN: Gallbladder. INDICATIONS FOR THE PROCEDURE: The patient is a 52-year-old female who presents with acute onset of right upper quadrant pain. She had further workup including CT scan and ultrasound concerning for cholelithiasis with acute cholecystitis. Decision for operative intervention. DESCRIPTION OF THE PROCEDURE IN DETAIL: The patient was taken to the operating suite and placed in supine position. She was prepped and draped in the usual sterile fashion after induction of general endotracheal anesthesia. Brief time-out done stating correct patient, procedure, surgical site, and all were in agreement with this. Attention was directed to the umbilicus where a stab darrion incision made with an 11-blade. Local anesthetic injected. Veress needle placed and intra-abdominal placement confirmed with saline drop test. Abdomen insufflated 60 mm pneumoperitoneum. After changing the Veress needle 5 mm Opti port and scope were introduced. No evidence of injury. Three other ports were placed, one 12 mm epigastric followed by two right-sided epigastric 5 mm ports. The patient was placed in reverse Trendelenburg and planed to the left. Identification of the gallbladder was initially a little difficult due to multiple omental adhesions. These were taken down bluntly and with the bovie electrocautery. Gallbladder was grasped and noted to be extremely edematous, thickened and indurated. The Endo needle was used to decompress the gallbladder with straw-colored fluid indicative of gallbladder hydrops. The cystic duct and cystic artery were attempted to be dissected out but again significant inflammation; therefore, a dome-down approach attempted. Small incision in the gallbladder noted multiple gallstones as well. Some of stones were removed. As the gallbladder was mobilized dome-down, cystic artery identified and two clips placed proximal and distal and a Liga clip placed as well. The cystic duct was then incised. The cystic duct was difficult to get all the way distally and therefore the infundibulum a #1 PDS Endoloop was used to ligate the gallbladder. The Endoshears were used to transect the gallbladder and the gallbladder was removed and sent to pathology through the epigastric port. Irrigation was done and suctioned until the effluent was clear. Minimal blood loss noted. The Bovie electrocautery was used for hemostasis to the gallbladder fossa. Small piece of Surgicel was placed in the gallbladder fossa to assist in further hemostasis. Following this, the pneumoperitoneum was removed, the ports were removed. Fascia was closed with #0 Vicryl suture, 4-0 Monocryl subcuticular sutures at all port sites. Sterile dressings including Mastisol and Steri-Strips were placed. The patient tolerated the procedure well. There were no intraoperative complications. The patient was extubated and taken stable to the post-anesthesia care unit. All lap and instruments counts were correct at the end of the procedure. MD LINA Larsen/JOSH /9:21 PM /9:00 PM
== END 2017-11-07 11:01 | disposition home or self-care (01) ==
LOC: PHED 10:32 → PHEDA 12:41 → PH3B 19:47
PROVIDERS: ADMIT Hospitalist; ATTEND Hospitalist
DX: K80.00 Calculus of gallbladder with acute cholecystitis without obstruction (principal); K82.1 Hydrops of gallbladder; Q44.1 Other congenital malformations of gallbladder; K76.0 Fatty (change of) liver, not elsewhere classified; K21.9 Gastro-esophageal reflux disease without esophagitis; D72.829 Elevated white blood cell count, unspecified; R94.31 Abnormal electrocardiogram [ECG] [EKG]
CPT/HCPCS: 00790; 47562; 74177; 76705; 80053; 81001; 83605; 83690; 84703; 85025; 85610; 88304; 93005; 96361; 96365; 96366; 96367; 96375; 96376; 99285; G0378; J0131; J0744; J1100; J1170; J2175; J2250; J2270; J2405; J2543; J3010; J7030; J7120; Q9967